=== PATIENT | female | born 1990 | race American Indian/Alaskan Native ===

== ENCOUNTER 2023-07-11 08:07 | Day surgery (SDC) | payer OTHER ==
[~2023-07-11] VITALS: Ht 160 cm; Wt 68.2 kg
[~2023-07-11 08:07] MED LIST: CIPRO500 MG PO; LEVOTHYROXINE100 MC2 PO
[2023-07-11 08:44] VITALS: BP 124/75
[2023-07-11] MEDS ORDERED: MOTRIN IB200 MG PO (10:48)
[2023-07-11] MEDS ORDERED: TYLENOL EXTRA500 MG PO (10:48)
[2023-07-11 11:04] VITALS: BP 103/66
[2023-07-11 11:56] VITALS: BP 85/55
[2023-07-11 13:00] VITALS: BP 95/60
--- NOTE | 2023-07-12 13:25 | OR ---
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 PROCEDURE: Debridement of left lateral ankle wound, 6 cm including sharp and curette technique. ANESTHESIA: General mask (nitrous oxide and sevoflurane), Tristan Zuniga, MANAGER ETHICS, and local, 1 mL of 1% Marcaine with epinephrine. INDICATIONS FOR THE PROCEDURE: This 33-year-old woman is referred from [facility] with a nonhealing wound posterior to the lateral malleolus of the ankle. She suffered injury three weeks previously by a spike ( young horse) causing direct lacerating trauma with the colts hoof. She was evaluated at [facility], where she underwent closure of the wound after irrigation. She soon thereafter had dehiscence of the wound with purulent drainage. She subsequently presented to the emergency room at [facility] and underwent CT scan of the ankle, negative for fracture under the direction of Dr. Dempsey on July 04, 2023. Cellulitic changes were noted in the lateral border of the calcaneus. No evidence of osteomyelitis, fracture, or actual abscess. She had been prescribed Cipro antibiotic. She has had non-closure of the wound and some drainage of the wound. She is referred for further evaluation. She is found to have some eschar in the edges of the wound and nonhealing, non-granulating wound at this time. She is admitted to undergo debridement anticipating local wound care. The risk of bleeding, infection, persistent nonhealing, and other unforeseen complications was reviewed with her. She understands and wished to proceed. FINDINGS: Debridement of necrotic tissue was undertaken. There was no sign of purulence or undrained abscess. The depths of the wound with some blackish granular material suggestive, though not diagnostic of retained wound debris. This is uncertain, however. Complete debridement to viable tissue was accomplished. Irrigation undertaken. The Electronically Signed By: MADHU RILEY MD 07/12/23 1325 PATIENT NAME: TYRONE MORENO OPERATIVE REPORT DATE OF : 88 REPORT #: [id number] PHYSICIAN: MADHU RILEY MD PCP: FIOR PAREDES REPORT IS CONFIDENTIAL AND NOT TO BE RELEASED WITHOUT AUTHORIZATION [facility] [address], [place] [address] Signed wound was dressed with plain gauze. DESCRIPTION OF PROCEDURE: The patient was brought to the operating room, given a general mask anesthetic, as IV access was particularly difficult. This included nitrous oxide and sevoflurane. The left ankle area was prepared with a Betadine based solution and draped sterilely. Using 0.25% Marcaine with epinephrine, local wound injection was undertaken. The wound was measured approximately 6 cm in aggregate. Elliptical excision of the edges of the wound was undertaken from dried nonhealing soft tissue. Scraping of the base of the wound delivered some dark granules suggestive, though not diagnostic of possible retained debris. This was additionally curetted with banjo curette and irrigation undertaken. A single ply Kerlix gauze was applied to the base of the wound and the wound was then wrapped with an Joseluis wrap. Sponges for the operation including additionally the Kerlix wrap was saved for the patient for postoperative wound care. She was allowed to emerge from anesthesia and taken to the recovery room in good condition. BLOOD LOSS: Minimal. COMPLICATIONS: None. MD KATY Garcia/JALEESAL /[id number] cc: Fior Paredes [facility] Electronically Signed By: MADHU RILEY MD 07/12/23 1325 PATIENT NAME: TYRONE MORENO OPERATIVE REPORT DATE OF : [birth year] REPORT #: [id number] PHYSICIAN: MADHU RILEY MD PCP: FIOR PAREDES REPORT IS CONFIDENTIAL AND NOT TO BE RELEASED WITHOUT AUTHORIZATION [facility] [address], [place] [address] Signed Copies: FIOR PAREDES Electronically Signed By: MADHU RILEY MD 07/12/23 1325 PATIENT NAME: TYRONE MORENO OPERATIVE REPORT DATE OF : [birth year] REPORT #: [id number] PHYSICIAN: MADHU RILEY MD PCP: FIOR PAREDES REPORT IS CONFIDENTIAL AND NOT TO BE RELEASED WITHOUT AUTHORIZATION
--- NOTE | 2023-07-16 08:38 | PATH ---
[facility] [address] [place] [place] [address] Signed SPECIMEN(S): A LEFT LATERAL ANKLE SPECIMEN SOURCE: A. LEFT LATERAL ANKLE CLINICAL HISTORY: Left lateral ankle wound infection FINAL PATHOLOGIC DIAGNOSIS: Left lateral ankle: - Necrotic ulcer base with granulation tissue, mixed inflammation, and abundant fungal organisms. JVR:[facility] MICROSCOPIC EXAMINATION: Histologic sections of all submitted blocks are examined by light microscopy. These findings, together with the gross examination, support the pathologic diagnosis. A PAS with diastase stain is performed with appropriate controls on block (A1) and highlights abundant fungal hyphae and yeast forms. JVR:[facility] GROSS DESCRIPTION: The specimen, labeled and designated "Rosalinda, left lateral ankle debridement," is received in formalin and consists of two brown-caldera, irregular shaped skin tissue fragments that aggregate measure 1.7 x 0.6 x 0.2 cm. Specimen is serially sectioned Entirely submitted in (A1). JS (under the direct supervision of a pathologist) The Gross Description was prepared using a voice recognition system. The report was reviewed for accuracy; however, sound-alike word errors, addition and/or deletions may occur. If there is any question about this report, please contact Client Services. PERFORMING LABORATORY: Technical component was performed by [facility], [address] [place] [id number] (CLIA# [id number]). Professional interpretation was performed by [facility], [address] [place] [id number] (CLIA#: [id number]). Diagnostician: Bryant Holland MD Pathologist PATIENT NAME: TYRONE MORENO PATHOLOGY DATE OF : [birth year] REPORT #: [id number] PHYSICIAN: [facility] PCP: CINDY PAREDES REPORT IS CONFIDENTIAL AND NOT TO BE RELEASED WITHOUT AUTHORIZATION [address] [address] Signed Electronically Signed 07/15/2023 Copies: ~ PATIENT NAME: TYRONE MORENO PATHOLOGY DATE OF : [birth year] REPORT #: [id number] PHYSICIAN: [facility] PCP: CINDY PAREDES REPORT IS CONFIDENTIAL AND NOT TO BE RELEASED WITHOUT AUTHORIZATION
== END 2023-07-11 13:20 | disposition home or self-care (01) ==
LOC: OPS 08:07 → DS 08:26 → OPS 09:35 → DS 11:15 → OPS 12:30
PROVIDERS: ATTEND Surgery
PROC: 0QBH0ZZ Excision of Left Tibia, Open Approach (ICD-10-PCS; principal; 2023-07-11 09:35)
DX: S91.002A Unspecified open wound, left ankle, initial encounter (principal); Z98.890 Other specified postprocedural states; E03.9 Hypothyroidism, unspecified
CPT/HCPCS: 00400; 88305; 88312; A9270; J0131; J1100; J1885; J2001; J2405; J2704; J3010